=== PATIENT | female | born 2000 | race African-American/Black ===

== ENCOUNTER 2021-03-30 13:42 | Emergency (ER) | payer OTHER, MEDICAID ==
[~2021-03-30] VITALS: Ht 162.6 cm; Wt 82.0 kg
[2021-03-30] MEDS ORDERED: KETOROLAC 30MG/ML VIAL IM ONE (14:00)
[2021-03-30] MEDS ORDERED: ACETAMINOPHEN WITH CODEINE 300/30MG TABLET PO ONE (14:00)
[2021-03-30] MEDS ORDERED: IBUPROFEN 400MG TABLET PO ONE (14:15)
[2021-03-30 15:43] VITALS: BP 155/90
== END 2021-03-30 15:44 | disposition home or self-care (01) ==
LOC: ER 14:13
DX: M54.2 Cervicalgia (principal); V43.62XA Car passenger injured in collision with other type car in traffic accident, initial encounter; Y93.89 Activity, other specified; Y92.488 Other paved roadways as the place of occurrence of the external cause
CPT/HCPCS: 72040; 99283